=== PATIENT | female | born 1970 ===

== ENCOUNTER 2017-01-31 20:46 | Emergency (ER) | payer MEDICAID, OTHER ==
[2017-01-31 20:56] VITALS: RESP 16; O2SAT 98
[2017-01-31 21:45] LABS: BASO % 0.1 % (0.0-2.0); EOS % 0.3 % (0.0-4.0); HEMOGLOBIN 10.4 g/dL (12.0-16.0); LYMPH # 0.6 K/uL (1.0-4.3); MEAN CELL VOLUME 92.4 fl (81.0-99.0); MEAN CORPUSCULAR HEMOGLOBIN 30.5 pg (27.0-31.0); MEAN PLATELET VOLUME 9.3 fl (7.2-11.7); MONO # 0.2 K/uL (0.0-0.8); MONO % 4.4 % (0.0-10.0); NEUT # 4.2 K/uL (1.8-7.0); NEUT % 84.2 % (50.0-75.0); RBC 3.4 Mil/uL (3.80-5.20); RED CELL DISTRIBUTION WIDTH 13.5 % (11.5-14.5)
[2017-01-31 21:53] LABS: SQUAMOUS EPITHIAL < 1 /hpf (0-5); URINE BILIRUBIN NEGATIVE (NEGATIVE); URINE BLOOD SMALL (NEGATIVE); URINE CLARITY CLEAR (Clear); URINE COLOR YELLOW (YELLOW); URINE GLUCOSE (UA) NEG (Normal); URINE LEUKOCYTE ESTERASE NEG Leu/uL (Negative); URINE NITRATE NEGATIVE (NEGATIVE); URINE PROTEIN NEGATIVE (NEGATIVE); URINE UROBILINOGEN 0.2-1.0 mg/dL (0.2-1.0)
[2017-01-31 22:02] LABS: ALB/GLOB RATIO 1.2 (1.0-2.1); ALBUMIN 3.2 g/dL (3.5-5.0); ALT/SGPT 36 U/L (9-52); AST/SGOT 31 U/L (14-36); BLOOD UREA NITROGEN 4 mg/dl (7-17); CALCIUM 8.6 mg/dL (8.4-10.2); GFR AFRICAN-AMERICAN > 60; GFR NON-AFRICAN AMERICAN > 60
[2017-01-31] MEDS ORDERED: Sodium Chloride 0.9% 50 ML IV ONE (22:11)
[2017-01-31] MEDS ORDERED: Iohexol 300 100 ML IJ ONE (22:11)
--- NOTE | 2017-01-31 23:30 | CT ---
EXAM: CT Abdomen and Pelvis With Intravenous Contrast CLINICAL HISTORY: 46 years old, female; Signs and symptoms; Fever and nausea and vomiting; Prior surgery; Surgery date: 6+ months; Surgery type: 2 c-sections. Tubal ligation; Additional info: Abdominal pain, vomiting TECHNIQUE: Axial computed tomography images of the abdomen and pelvis with intravenous contrast. This CT exam was performed using one or more of the following dose reduction techniques: automated exposure control, adjustment of the mA and/or kV according to patient size, and/or use of iterative reconstruction technique. Coronal and sagittal reformatted images were created and reviewed. CONTRAST: 90 mL of [id number] administered intravenously. EXAM DATE/TIME: 01/31/2017 9:01 PM COMPARISON: CT ABD AND PELV W/CONTRAST 09/13/2013 12:43:50 PM FINDINGS: Lower thorax: Heart size is normal. There is minimal atelectasis at the lung bases. ABDOMEN: Liver: unremarkable Gallbladder and bile ducts: unremarkable Pancreas: unremarkable Spleen: unremarkable Adrenals: unremarkable Kidneys and ureters: unremarkable Stomach and bowel: Stomach is almost empty. Rotation is normal. Small bowel is mildly distended with fluid and air. Terminal ileum is unremarkable.Appendix is not visualized.There is no pericecal inflammation. There is moderate stool in the colon. Appendix: See above. PELVIS: Bladder: unremarkable Reproductive: Uterus is enlarged. There are calcified and noncalcified masses. There are multiple nabothian cysts in the cervix. ABDOMEN and PELVIS: Intraperitoneal space: There is trace free fluid.There is no free air. Bones/joints: There are degenerative changes in the osseus structures. Soft tissues: unremarkable Vasculature: Vascular structures are unremarkable. Lymph nodes: There is no pathologic adenopathy. IMPRESSION: No acute solid visceral abnormality; enlarged fibroid uterus; mild ileus, no obstruction; nonvisualization the appendix no CT findings of appendicitis Additional findings as described above.
--- NOTE | 2017-02-01 00:07 | ED PDOC ---
HPI: Abdomen Time Seen by Provider: 01/31/17 20:59 Chief Complaint (Nursing): Abdominal Pain Chief Complaint (Provider): Abdominal pain History Per: Patient History/Exam Limitations: no limitations Onset/Duration Of Symptoms: Days Outside of [place] travel?: No Past Medical History Vital Signs: Last Vital Signs Temp 98.4 F 01/31/17 20:53 Pulse 85 01/31/17 20:53 Resp 16 01/31/17 20:53 BP 105/61 01/31/17 20:53 Pulse Ox 98 01/31/17 20:53 - Medical History PMH: Anxiety, Asthma, Bipolar Disorder, Depression Denies: Chronic Kidney Disease - Family History Family History: States: Unknown Family Hx - Immunization History Hx Tetanus Toxoid Vaccination: No Hx Influenza Vaccination: No Hx Pneumococcal Vaccination: No - Home Medications Home Medications: Ambulatory Orders Medication Instructions Recorded Dicyclomine [Dicyclomine HCl] 10 mg PO QID #20 cap 01/29/17 Gabapentin [Neurontin] 100 mg PO BID 01/29/17 oxyCODONE/Acetaminophen [Percocet 1 ea PO Q6H PRN #15 tab 02/01/17 5/325 mg Tab] - Allergies Allergies/Adverse Reactions: Allergies Allergy/AdvReac Type Severity Reaction Status Date / Time No Known Allergies Allergy Verified 01/29/17 02:56 - Laboratory Results Result Diagrams: 01/31/17 21:30 01/31/17 21:30 - ECG O2 Sat by Pulse Oximetry: 98 Disposition - Clinical Impression Clinical Impression: Abdominal pain - Patient ED Disposition Is Patient to be Admitted: No Counseled Patient/Family Regarding: Diagnosis, Need For Followup, Rx Given - Disposition Referrals: [facility] [Outside] [facility] [Outside] Disposition: Routine/Home Disposition Time: 00:06 Condition: GOOD Prescriptions: oxyCODONE/Acetaminophen [Percocet 5/325 mg Tab] 1 ea PO Q6H PRN #15 tab PRN Reason: Pain, Severe (8-10) Instructions: Abdominal Pain (ED) Print Language: BULGARIAN
[2017-02-01 00:21] VITALS: BP 110/72; PULSE 84; TEMP 99.1
== END 2017-02-01 00:22 | disposition home or self-care (01) ==
LOC: H.ER 20:46
DX: R10.9 Unspecified abdominal pain (principal); F31.9 Bipolar disorder, unspecified; F41.9 Anxiety disorder, unspecified; J45.909 Unspecified asthma, uncomplicated

== ENCOUNTER 2017-02-23 07:11 | Emergency (ER) | payer MEDICAID ==
[2017-02-23 07:14] VITALS: BMI 23.8
[2017-02-23 07:15] VITALS: BP 148/84; PULSE 79; RESP 18; TEMP 97.3; O2SAT 98
--- NOTE | 2017-02-23 08:24 | ED PDOC ---
HPI: Psych/Substance Abuse Time Seen by Provider: 02/23/17 07:44 Chief Complaint (Nursing): Anxiety Chief Complaint (Provider): Anxiety History Per: Patient, Family History/Exam Limitations: no limitations Onset/Duration Of Symptoms: Days Current Symptoms Are (Timing): Still Present Suicide/Self Injury Attempted (Context): None Additional Complaint(s): The patient is a 46yo female, past medical history of bipolar disorder, anxiety and depression, currently newly started on Lexipro, presents to the ED for evaluation of anxiety preset for the past two days. Patient reports she has been feeling anxious and was not able to sleep for the past two nights. She reports presenting today due to a "panic attack." The patient denies any suicidal ideation, homicidal ideation, auditory or visual hallucinations. Patient additionally denies any headache, chest pain, nausea, vomiting, abdominal pain. Patient offers no additional medical complaints. Past Medical History Reviewed: Historical Data, Nursing Documentation, Vital Signs Vital Signs: Last Vital Signs Temp 97.3 F L 02/23/17 07:14 Pulse 79 02/23/17 07:14 Resp 18 02/23/17 07:14 BP 148/84 02/23/17 07:14 Pulse Ox 98 02/23/17 07:14 - Medical History PMH: Anxiety, Asthma, Bipolar Disorder, Depression Denies: Chronic Kidney Disease - Family History Family History: States: Unknown Family Hx - Immunization History Hx Tetanus Toxoid Vaccination: No Hx Influenza Vaccination: No Hx Pneumococcal Vaccination: No - Home Medications Home Medications: Ambulatory Orders Medication Instructions Recorded Dicyclomine [Dicyclomine HCl] 10 mg PO QID #20 cap 01/29/17 Gabapentin [Neurontin] 100 mg PO BID 01/29/17 oxyCODONE/Acetaminophen [Percocet 1 ea PO Q6H PRN #15 tab 02/01/17 5/325 mg Tab] - Allergies Allergies/Adverse Reactions: Allergies Allergy/AdvReac Type Severity Reaction Status Date / Time No Known Allergies Allergy Verified 01/29/17 02:56 Review of Systems ROS Statement: Except As Marked, All Systems Reviewed And Found Negative Constitutional: Negative for: Fever, Chills Cardiovascular: Negative for: Chest Pain Gastrointestinal: Negative for: Nausea, Vomiting, Abdominal Pain Psych: Positive for: Anxiety. Negative for: Suicidal ideation, Other ( homicidal ideation, hallucinations) Physical Exam - Reviewed Nursing Documentation Reviewed: Yes Vital Signs Reviewed: Yes - Physical Exam Appears: Positive for: Well, Non-toxic, No Acute Distress Head Exam: Positive for: ATRAUMATIC, NORMAL INSPECTION, NORMOCEPHALIC Skin: Positive for: Normal Color Eye Exam: Positive for: Normal appearance Neck: Positive for: Normal, Supple Cardiovascular/Chest: Positive for: Regular Rate, Rhythm Respiratory: Positive for: Normal Breath Sounds. Negative for: Respiratory Distress Gastrointestinal/Abdominal: Positive for: Soft. Negative for: Tenderness Neurologic/Psych: Positive for: Alert, Oriented. Negative for: Motor/Sensory Deficits - ECG O2 Sat by Pulse Oximetry: 98 (RA) Pulse Ox Interpretation: Normal Medical Decision Making Medical Decision Making: Time: 0800 Impression: Anxiety Plan: 08 Patient reports feeling better and states she wishes to go home. Patient informed that the lexipro will take 2 weeks to have its full effect, she was informed to continue taking her medications without fail and to follow up with her pcp in 1-2 days. Patient expresses understanding and is agreeable. Stable for discharge home. Scribe Attestation: Documented by Janet Ge acting as a scribe for Ainsley Lazaro MD. Provider Attestation: All medical record entries made by the Scribe were at my direction and personally dictated by me. I have reviewed the chart and agree that the record accurately reflects my personal performance of the history, physical exam, medical decision making, and the department course for this patient. I have also personally directed, reviewed, and agree with the discharge instructions and disposition. Disposition - Clinical Impression Clinical Impression: Anxiety disorder, Depression - Patient ED Disposition Is Patient to be Admitted: No - Disposition Referrals: Isi Mirza MD [Family Provider] - Disposition: Routine/Home Disposition Time: 08:15 Condition: STABLE Instructions: Generalized Anxiety Disorder (ED), Insomnia (ED) Forms: [facility] School/Work Excuse Print Language: GUINEAN - POA Present On Arrival: None
--- NOTE | 2017-02-23 11:22 | CARD ---
APPROVED REPORT EKG Measurement Heart [id number] <Conclusion> Normal sinus rhythm Incomplete right bundle branch block Borderline ECG
== END 2017-02-23 08:47 | disposition home or self-care (01) ==
LOC: H.ER 07:11
DX: F41.0 Panic disorder [episodic paroxysmal anxiety] (principal); F31.9 Bipolar disorder, unspecified; J45.909 Unspecified asthma, uncomplicated

== ENCOUNTER 2017-06-12 13:56 | Emergency (ER) | payer SELFPAY ==
[2017-06-12 13:57] VITALS: BMI 23.8
[2017-06-12 14:17] VITALS: BP 118/70; PULSE 78; RESP 18; TEMP 98; O2SAT 100
--- NOTE | 2017-06-12 14:47 | ED PDOC ---
Upper Extremity Pain/Injury Time Seen by Provider: 06/12/17 14:27 Chief Complaint (Nursing): Upper Extremity Problem/Injury Chief Complaint (Provider): Bilateral arm and hand pain History Per: Patient History/Exam Limitations: no limitations Onset/Duration Of Symptoms: Days (3) Current Symptoms Are (Timing): Still Present Additional Complaint(s): Patient is a 46 y/o female with a past medical history of asthma presenting to the emergency department for bilateral arm pain and hand pain ongoing for three days. She states pain is worse in right elbow. 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 Denies decreased range of motion of upper extremities, fall, trauma, or other complaints. PCP: none provided. Past Medical History Reviewed: Historical Data, Nursing Documentation, Vital Signs Vital Signs: Last Vital Signs Temp 98 F 06/12/17 14:15 Pulse 78 06/12/17 14:15 Resp 18 06/12/17 14:15 BP 118/70 06/12/17 14:15 Pulse Ox 100 06/12/17 14:15 - Medical History PMH: Anxiety, Asthma, Bipolar Disorder, Depression Denies: Chronic Kidney Disease - Family History Family History: States: Unknown Family Hx - Social History Current smoker - smoking cessation education provided: Yes (>10 cigarettes for 20 years) Ex-Smoker (has not smoked in the last 12 months): No Alcohol: None Drugs: Denies - Immunization History Hx Tetanus Toxoid Vaccination: No Hx Influenza Vaccination: No Hx Pneumococcal Vaccination: No - Home Medications Home Medications: Ambulatory Orders Medication Instructions Recorded Dicyclomine [Dicyclomine HCl] 10 mg PO QID #20 cap 01/29/17 Gabapentin [Neurontin] 100 mg PO BID 01/29/17 oxyCODONE/Acetaminophen [Percocet 1 ea PO Q6H PRN #15 tab 02/01/17 5/325 mg Tab] Ibuprofen [Motrin] 600 mg PO Q8 #30 tab 06/12/17 - Allergies Allergies/Adverse Reactions: Allergies Allergy/AdvReac Type Severity Reaction Status Date / Time No Known Allergies Allergy Verified 06/12/17 14:14 Review of Systems ROS Statement: Except As Marked, All Systems Reviewed And Found Negative Musculoskeletal: Positive for: Arm Pain (bilateral, with sudden resolved weakness on her right arm), Hand Pain (finger joint pain), Other (traumatic pain ) Physical Exam - Reviewed Nursing Documentation Reviewed: Yes Vital Signs Reviewed: Yes - Physical Exam Appears: Positive for: Well, Non-toxic, No Acute Distress Head Exam: Positive for: ATRAUMATIC, NORMAL INSPECTION, NORMOCEPHALIC Skin: Positive for: Normal Color, Warm, Dry Eye Exam: Positive for: Normal appearance Neck: Positive for: Normal Cardiovascular/Chest: Positive for: Regular Rate, Rhythm. Negative for: Murmur Respiratory: Positive for: Normal Breath Sounds. Negative for: Accessory Muscle Use, Respiratory Distress Pulses-Radial (L): 2+ Pulses-Radial (R): 2+ Extremity: Positive for: Normal ROM, Tenderness (nodule to PIP of left 5th digit , tenderness to right lateral elbow and arm, pain worse with pronation of arm). Negative for: Deformity, Swelling Neurologic/Psych: Positive for: Alert, Oriented (x3) - ECG O2 Sat by Pulse Oximetry: 100 (RA) Pulse Ox Interpretation: Normal Medical Decision Making Medical Decision Making: Time: 14:35 Initial impression: arm pain, no hx of trauma, no signs of fx Initial plan: Motrin 600 mg PO Reevaluation Patient reports feeling better and asking for Rx. Symptoms likely related to arthralgia vs tendonitis. Recommend NSAIDs ~ Scribe Attestation: Documented by Adela Key, acting as a scribe for GUILLAUME Mane. Provider Scribe Attestation: All medical record entries made by the Scribe were at my direction and personally dictated by me. I have reviewed the chart and agree that the record accurately reflects my personal performance of the history, physical exam, medical decision making, and the department course for this patient. I have also personally directed, reviewed, and agree with the discharge instructions and disposition. Disposition - Clinical Impression Clinical Impression: Arm pain, right, Tendonitis - Patient ED Disposition Is Patient to be Admitted: No Counseled Patient/Family Regarding: Diagnosis, Need For Followup, Rx Given - Disposition Referrals: [facility] [Outside] Disposition Time: 15:10 Condition: GOOD Additional Instructions: Vaya a clinton mdico o la clnica en 2-5 nichols sin falta, para mas evaluacin. Hytop los medicamentos camilla indicado. Volver a la paolo de emergencia en cualquier momento si los sntomas persisten o empeoran. Prescriptions: Ibuprofen [Motrin] 600 mg PO Q8 #30 tab Forms: [email or web address] (Polish) Print Language: THAI - POA Present On Arrival: None
== END 2017-06-12 15:19 | disposition home or self-care (01) ==
LOC: H.ER 13:56
DX: M79.601 Pain in right arm (principal); F31.9 Bipolar disorder, unspecified; F41.9 Anxiety disorder, unspecified; J45.909 Unspecified asthma, uncomplicated

== ENCOUNTER 2018-02-12 12:19 | Emergency (ER) | payer MEDICAID, OTHER ==
[2018-02-12 12:19] VITALS: BMI 24.7
[2018-02-12 12:25] VITALS: BP 112/77; PULSE 92; RESP 20; TEMP 98.3; O2SAT 97
--- NOTE | 2018-02-12 14:32 | ED PDOC ---
HPI: General Adult Time Seen by Provider: 02/12/18 12:34 Chief Complaint (Nursing): Upper Extremity Problem/Injury Chief Complaint (Provider): Shoulder Pain History Per: Patient History/Exam Limitations: no limitations Onset/Duration Of Symptoms: Days (x 4) Current Symptoms Are (Timing): Still Present Additional Complaint(s): 47-year-old female presents to ED with R shoulder pain, ongoing for the last 4 days. Pt reports she works at the [employer] and lifts heavy packages daily. Pt states she has a history of similar pain that it usually resolves spontaneously, but reports this episode is lasting longer than usual. Pt states no relief after taking ibuprofen, last dose yesterday. (-) fever/chills (-) falls or trauma, (-) chest pain, (-) shortness of breath, (-) abdominal pain, (- ) nausea, (-) vomiting (-) history of surgery to shoulder. No other complaints at this time. LMP: 01/11/18 PMD: None Past Medical History Reviewed: Historical Data, Nursing Documentation, Vital Signs Vital Signs: Last Vital Signs Temp 98.3 F 02/12/18 12:22 Pulse 92 H 02/12/18 12:22 Resp 20 02/12/18 12:22 BP 112/77 02/12/18 12:22 Pulse Ox 97 02/13/18 18:38 - Medical History PMH: Anxiety, Asthma, Bipolar Disorder, Depression - Surgical History Surgical History: (x 2) Other surgeries: Laparoscopy - Family History Family History: States: Unknown Family Hx - Social History Current smoker - smoking cessation education provided: Yes (5 cigarettes a day) Alcohol: None Drugs: Denies - Home Medications Home Medications: Ambulatory Orders Medication Instructions Recorded Cyclobenzaprine [Cyclobenzaprine 10 mg PO HS #7 tab 01/06/18 HCl] Naproxen [Naprosyn] 1 tab PO BID PRN #20 tab 01/06/18 Ibuprofen [Motrin Tab] 800 mg PO TID PRN #15 tab 01/15/18 Meloxicam [Mobic] 15 mg PO DAILY #10 tab 02/12/18 Methocarbamol [Robaxin-750] 750 mg PO TID PRN #12 tab 02/12/18 - Allergies Allergies/Adverse Reactions: Allergies Allergy/AdvReac Type Severity Reaction Status Date / Time No Known Allergies Allergy Verified 02/12/18 12:30 Review of Systems ROS Statement: Except As Marked, All Systems Reviewed And Found Negative Cardiovascular: Negative for: Chest Pain Respiratory: Negative for: Shortness of Breath Gastrointestinal: Negative for: Nausea, Vomiting, Abdominal Pain Musculoskeletal: Positive for: Shoulder Pain (R Shoulder Pain) Physical Exam - Reviewed Nursing Documentation Reviewed: Yes Vital Signs Reviewed: Yes - Physical Exam Appears: Positive for: Well (Resting comfortably), Non-toxic, No Acute Distress Head Exam: Positive for: ATRAUMATIC, NORMOCEPHALIC Skin: Positive for: Normal Color, Warm, Dry Eye Exam: Positive for: EOMI, PERRL ENT: Positive for: Other (Mucus membranes moist. Airway patent, (-) stridor) Neck: Positive for: Painless ROM, Supple Cardiovascular/Chest: Positive for: Regular Rate, Rhythm Respiratory: Positive for: Normal Breath Sounds (respirations even and nonlabored, speaking in full sentences). Negative for: Respiratory Distress Back: Negative for: L CVA Tenderness, R CVA Tenderness, Vertebral Tenderness Extremity: Positive for: Other ((+) Tenderness to R posterior shoulder, R trapezius muscle, R paracervical muscle, (+) decreased ROM on abduction and extension of the R shoulder, (-) clavicular tenderness, (-) deformity, (-) swelling, (-) erythema, (-) overlying skin changes. Cap refill and sensation intact throughout. (-) distal NV deficit). Negative for: Deformity Neurologic/Psych: Positive for: Alert, Oriented (x3), Gait (steady in ED) - Laboratory Results Urine POC: Negative - ECG O2 Sat by Pulse Oximetry: 97 (RA) Pulse Ox Interpretation: Normal - Progress Re-evaluation Time: 14:20 (Pt reports resolution of symptoms. Pt is requesting to go home.) Condition: Re-examined Medical Decision Making Medical Decision Makin-year-old female with acute shoulder pain and muscle spasm Plan: - ED Test - Toradol 30 mg IM - Valium 5 mg PO (Not driving home) (-) ED Test 1420 Upon provider evaluation patient reports improvement of symptoms and is medically stable; requires no further treatment in the ED at this time. Patient will be discharged with Rx for Mobic and Robaxin. Counseling was provided and all questions were answered regarding diagnosis and need for follow up with clinic/ortho for further evaluation of symptoms. There is agreement to discharge plan. Return if symptoms persist or worsen. Patient states she fully agrees with and understands discharge instructions. States that she agrees with the plan and disposition. Verbalized and repeated discharge instructions and plan. I have given the patient opportunity to ask any additional questions. Scribe Attestation: Documented by Herbert Serna, acting as a scribe for Addis Hassan PA-C. Provider Scribe Attestation: All medical record entries made by the Scribe were at my direction and personally dictated by me. I have reviewed the chart and agree that the record accurately reflects my personal performance of the history, physical exam, medical decision making, and the department course for this patient. I have also personally directed, reviewed, and agree with the discharge instructions and disposition. Disposition - Clinical Impression Clinical Impression: Shoulder pain, acute, Muscle spasm of right shoulder - Patient ED Disposition Is Patient to be Admitted: No Counseled Patient/Family Regarding: Diagnosis, Need For Followup, Rx Given - Disposition Referrals: [facility] [Outside] George Kay III, MD [Staff Provider] - Disposition: Routine/Home Disposition Time: 14:29 Condition: STABLE Additional Instructions: FOLLOW UP WITH CLINIC/ORTHO FOR FURTHER EVALUATION OF SYMPTOMS. RETURN TO ED WITH ANY NEW OR WORSENING SYMPTOMS. APPLY HEAT TO AREA OF DISCOMFORT ON AND OFF EVERY 20 MINUTES. Prescriptions: Meloxicam [Mobic] 15 mg PO DAILY #10 tab Methocarbamol [Robaxin-750] 750 mg PO TID PRN #12 tab PRN Reason: Muscle Spasm Instructions: Muscle Spasms (DC), Shoulder Pain (DC) Forms: [employer] (Luxembourgish), [facility] ED School/Work Excuse Print Language: MALAY - POA Present On Arrival: None
== END 2018-02-12 14:46 | disposition home or self-care (01) ==
LOC: H.ER 12:19
DX: S46.911A Strain of unspecified muscle, fascia and tendon at shoulder and upper arm level, right arm, initial encounter (principal); X50.9XXA Other and unspecified overexertion or strenuous movements or postures, initial encounter; Y99.0 Civilian activity done for income or pay
CPT/HCPCS: 81025; 96372; 99282; J1885

== ENCOUNTER 2018-03-12 10:58 | Emergency (ER) | payer OTHER ==
[2018-03-12 10:59] VITALS: BMI 24.7
[2018-03-12 11:13] VITALS: BP 116/75; PULSE 74; RESP 20; TEMP 98.3; O2SAT 99
--- NOTE | 2018-03-12 12:17 | ED PDOC ---
Upper Extremity Pain/Injury Time Seen by Provider: 03/12/18 12:12 Chief Complaint (Nursing): Upper Extremity Problem/Injury Chief Complaint (Provider): elbow pain History Per: Patient Additional Complaint(s): 47-year-old [id number] female presents with pain and swelling to left elbow status post lifting heavy object at work 5 days ago. Patient has been taking ibuprofen which has provided minimal pain relief. Patient has noticed swelling to lateral aspect of the elbow as of yesterday. No associated numbness or tingling. PMD: none Past Medical History Reviewed: Historical Data, Nursing Documentation, Vital Signs Vital Signs: Last Vital Signs Temp 98.3 F 03/12/18 11:12 Pulse 74 03/12/18 11:12 Resp 20 03/12/18 11:12 BP 116/75 03/12/18 11:12 Pulse Ox 99 03/12/18 11:12 - Medical History PMH: Anxiety, Asthma, Bipolar Disorder, Depression - Surgical History Surgical History: (x 2) - Family History Family History: States: No Known Family Hx - Living Arrangements Living Arrangements: With Family - Social History Current smoker - smoking cessation education provided: No Alcohol: None Drugs: Denies - Home Medications Home Medications: Ambulatory Orders Medication Instructions Recorded Cyclobenzaprine [Cyclobenzaprine 10 mg PO HS #7 tab 01/06/18 HCl] Naproxen [Naprosyn] 1 tab PO BID PRN #20 tab 01/06/18 Ibuprofen [Motrin Tab] 800 mg PO TID PRN #15 tab 01/15/18 Meloxicam [Mobic] 15 mg PO DAILY #10 tab 02/12/18 Methocarbamol [Robaxin-750] 750 mg PO TID PRN #12 tab 02/12/18 Cyclobenzaprine [Cyclobenzaprine 10 mg PO TID PRN #20 tab 03/12/18 HCl] Naproxen [Naprosyn] 500 mg PO BID #20 tab 03/12/18 - Allergies Allergies/Adverse Reactions: Allergies Allergy/AdvReac Type Severity Reaction Status Date / Time No Known Allergies Allergy Verified 02/12/18 12:30 Review of Systems ROS Statement: Except As Marked, All Systems Reviewed And Found Negative Constitutional: Negative for: Fever Cardiovascular: Negative for: Chest Pain Respiratory: Negative for: Cough Gastrointestinal: Negative for: Nausea, Vomiting Musculoskeletal: Positive for: Other (left elbow pain ) Physical Exam - Reviewed Nursing Documentation Reviewed: Yes Vital Signs Reviewed: Yes - Physical Exam Appears: Positive for: Well Skin: Positive for: Normal Color. Negative for: Rash Eye Exam: Positive for: Normal appearance Cardiovascular/Chest: Positive for: Regular Rate, Rhythm Respiratory: Positive for: Normal Breath Sounds Extremity: Positive for: Other (Swelling and ecchymosis lateral aspect of left elbow, full range of motion with pain, strong left handgrip, neurovascular intact) Neurologic/Psych: Positive for: Alert, Oriented - ECG O2 Sat by Pulse Oximetry: 99 Pulse Ox Interpretation: Normal - Other Rad Left elbow x-ray X-Ray: Interpreted by Me, Viewed By Me X-Ray Interpretation: no fx, no dis Medical Decision Making Medical Decision Makin47 year old with left elbow pain x 5 days Plan: IM toradol X-ray left elbow Patient is aware of x-ray results, all questions answered. Patient referred to ortho on-call for follow-up. Prescriptions for Naprosyn and Flexeril provided. Procedures - Splinting Location: left elbow Pre-Made Type: leslee wrap, sling Pre-Proc Neuro Vasc Exam: normal Post-Proc Neuro Vasc Exam: normal Disposition - Clinical Impression Clinical Impression: Elbow sprain - Patient ED Disposition Is Patient to be Admitted: No Counseled Patient/Family Regarding: Studies Performed, Diagnosis, Need For Followup, Rx Given - Disposition Referrals: Sharad Rodriguez MD [Medical Doctor] - Disposition: Routine/Home Disposition Time: 13:27 Condition: STABLE Additional Instructions: Ice, rest and elevate affected area. Take prescription meds as directed as needed for pain. Follow-up with orthopedist for further evaluation. Prescriptions: Cyclobenzaprine [Cyclobenzaprine HCl] 10 mg PO TID PRN #20 tab PRN Reason: Muscle Spasm Naproxen [Naprosyn] 500 mg PO BID #20 tab Instructions: Elbow Sprain (DC) Forms: [employer] (Malian), [facility] ED School/Work Excuse
--- NOTE | 2018-03-12 13:23 | RAD ---
Date of service: 03/12/2018 PROCEDURE: Radiographs of the left elbow. HISTORY: trauma COMPARISON: No prior. FINDINGS: BONES: Normal. No fracture. JOINTS: Normal. No osteoarthritis. SOFT TISSUES: Normal. JOINT EFFUSION: None. OTHER FINDINGS: None IMPRESSION: Unremarkable radiographs of the left elbow. Concordant results with the preliminary interpretation rendered by the emergency department physician procedure.
== END 2018-03-12 13:52 | disposition home or self-care (01) ==
LOC: H.ER 10:58
DX: S53.402A Unspecified sprain of left elbow, initial encounter (principal); X50.9XXA Other and unspecified overexertion or strenuous movements or postures, initial encounter; Y99.0 Civilian activity done for income or pay; F31.9 Bipolar disorder, unspecified; F41.9 Anxiety disorder, unspecified
CPT/HCPCS: 73080; 96372; 99282; J1885

== ENCOUNTER 2018-03-24 06:17 | Emergency (ER) | payer OTHER ==
[2018-03-24 06:17] VITALS: BMI 24.7
[2018-03-24 06:45] VITALS: BP 131/80; PULSE 72; RESP 18; TEMP 98.7; O2SAT 100
--- NOTE | 2018-03-24 07:23 | ED PDOC ---
Upper Extremity Pain/Injury Time Seen by Provider: 03/24/18 07:07 Chief Complaint (Nursing): Upper Extremity Problem/Injury Chief Complaint (Provider): elbow pain History Per: Patient History/Exam Limitations: no limitations Onset/Duration Of Symptoms: Days Current Symptoms Are (Timing): Still Present Additional Complaint(s): Pt. with left elbow pain ongoing for 17 days. She hurt it lifting a heavy box and pain since then. She came to the ER several times and saw her doctor at work. Was dx with tendonitis. Pt. here again as she wants a work note as she still has pain. No numbness, tingles. Pain on moving elbow around. No pain elsewhere. No weakness. No chest pain. No new injury. Past Medical History Reviewed: Nursing Documentation, Vital Signs Vital Signs: Last Vital Signs Temp 98.7 F 03/24/18 06:43 Pulse 72 03/24/18 06:43 Resp 18 03/24/18 06:43 BP 131/80 03/24/18 06:43 Pulse Ox 100 03/24/18 06:43 - Medical History PMH: Anxiety, Asthma, Bipolar Disorder, Depression Denies: Chronic Kidney Disease - Surgical History Surgical History: (x 2) - Family History Family History: States: Unknown Family Hx - Immunization History Hx Tetanus Toxoid Vaccination: No Hx Influenza Vaccination: No Hx Pneumococcal Vaccination: No - Home Medications Home Medications: Ambulatory Orders Medication Instructions Recorded Cyclobenzaprine [Cyclobenzaprine 10 mg PO HS #7 tab 01/06/18 HCl] Naproxen [Naprosyn] 1 tab PO BID PRN #20 tab 01/06/18 Ibuprofen [Motrin Tab] 800 mg PO TID PRN #15 tab 01/15/18 Meloxicam [Mobic] 15 mg PO DAILY #10 tab 02/12/18 Methocarbamol [Robaxin-750] 750 mg PO TID PRN #12 tab 02/12/18 Cyclobenzaprine [Cyclobenzaprine 10 mg PO TID PRN #20 tab 03/12/18 HCl] Naproxen [Naprosyn] 500 mg PO BID #20 tab 03/12/18 Ibuprofen [Motrin] 600 mg PO TID 7 Days tab 03/24/18 - Allergies Allergies/Adverse Reactions: Allergies Allergy/AdvReac Type Severity Reaction Status Date / Time No Known Allergies Allergy Verified 03/24/18 06:45 Review of Systems Constitutional: Negative for: Weakness Cardiovascular: Negative for: Chest Pain Respiratory: Negative for: Shortness of Breath Musculoskeletal: Positive for: Arm Pain. Negative for: Neck Pain, Shoulder Pain , Back Pain, Hand Pain Skin: Negative for: Rash Neurological: Negative for: Weakness, Numbness, Confusion Physical Exam - Reviewed Nursing Documentation Reviewed: Yes Vital Signs Reviewed: Yes - Physical Exam Appears: Positive for: Non-toxic, No Acute Distress Skin: Positive for: Normal Color, Warm, DRY Neck: Positive for: Normal, Painless ROM Cardiovascular/Chest: Positive for: Regular Rate, Rhythm Respiratory: Positive for: Normal Breath Sounds Pulses-Radial (L): 2+ Pulses-Radial (R): 2+ Back: Positive for: Normal Inspection. Negative for: L CVA Tenderness, R CVA Tenderness Extremity: Positive for: Tenderness (medial left elbow; no echymosis or swelling ). Negative for: Normal ROM (left elbow limited due to pain at medial elbow; can bend active and passively to 100* before pain starts.), Calf Tenderness Neurologic/Psych: Positive for: Alert, Oriented - ECG O2 Sat by Pulse Oximetry: 100 Pulse Ox Interpretation: Normal - Progress ED Course And Treament: 730: Stable. AAOx3. Pain is chronic. Wants a work note. Her work said she can return. Advised to fu with pcp or work doctor for further evaluation. Disposition - Clinical Impression Clinical Impression: Tendonitis, Chronic pain - Patient ED Disposition Is Patient to be Admitted: No Counseled Patient/Family Regarding: Diagnosis, Need For Followup, Rx Given - Disposition Referrals: [facility] [Outside] - 03/25/18 Disposition: Routine/Home Disposition Time: 07:24 Condition: STABLE Additional Instructions: Return if not better in 3 days. Prescriptions: Ibuprofen [Motrin] 600 mg PO TID 7 Days tab Instructions: Chronic Pain (DC), Tendonitis (DC) Forms: [facility] ED School/Work Excuse
== END 2018-03-24 07:40 | disposition home or self-care (01) ==
LOC: H.ER 06:17
DX: M77.12 Lateral epicondylitis, left elbow (principal); F31.9 Bipolar disorder, unspecified; F41.9 Anxiety disorder, unspecified; G89.29 Other chronic pain
CPT/HCPCS: 96372; 99283; J1885

== ENCOUNTER 2018-06-28 11:40 | Emergency (ER) | payer MEDICAID, OTHER ==
[2018-06-28 11:55] VITALS: BMI 27.3
[2018-06-28 11:57] VITALS: BP 105/71; PULSE 81; RESP 20; TEMP 98.3; O2SAT 98
--- NOTE | 2018-06-28 13:13 | ED PDOC ---
Upper Extremity Pain/Injury Time Seen by Provider: 06/28/18 12:16 Chief Complaint (Nursing): Upper Extremity Problem/Injury Chief Complaint (Provider): Upper Extremity Problem/Injury History Per: Patient History/Exam Limitations: no limitations Onset/Duration Of Symptoms: Persistent (x3 months) Current Symptoms Are (Timing): Still Present Exacerbating Factor(s): Movement Additional Complaint(s): 47 year old female, left-hand dominant, presents to ED with a complaint of persistent left elbow pain with a clicking sensation, ongoing for 3 months. She reports taking Ibuprofen/Naprosyn at home with minimal relief - last dose at 2100 last night. Patient states she was diagnosed with tendonitis upon initial onset after a work injury but could not follow up with orthopedist as recommended due to pending insurance status. 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 LMP: patient cannot recall. PCP: none provided Past Medical History Reviewed: Historical Data, Nursing Documentation, Vital Signs Vital Signs: Last Vital Signs Temp 98.3 F 06/28/18 11:55 Pulse 81 06/28/18 11:55 Resp 20 06/28/18 11:55 BP 105/71 06/28/18 11:55 Pulse Ox 98 06/28/18 11:55 - Medical History PMH: Anxiety, Asthma, Bipolar Disorder, Depression - Surgical History Surgical History: (x 2) Other surgeries: left knee - Family History Family History: States: Unknown Family Hx - Social History Current smoker - smoking cessation education provided: Yes (5-6/daily) - Home Medications Home Medications: Ambulatory Orders Medication Instructions Recorded Cyclobenzaprine [Cyclobenzaprine 10 mg PO HS #7 tab 01/06/18 HCl] RX: Naproxen [Naprosyn] 1 tab PO BID PRN #20 tab 01/06/18 Ibuprofen [Motrin Tab] 800 mg PO TID PRN #15 tab 01/15/18 Meloxicam [Mobic] 15 mg PO DAILY #10 tab 02/12/18 Methocarbamol [Robaxin-750] 750 mg PO TID PRN #12 tab 02/12/18 Cyclobenzaprine [Cyclobenzaprine 10 mg PO TID PRN #20 tab 03/12/18 HCl] Naproxen [Naprosyn] 500 mg PO BID #20 tab 03/12/18 Ibuprofen [Motrin] 600 mg PO TID 7 Days tab 03/24/18 Acetaminophen [Acetaminophen 8 650 mg PO Q8 PRN #21 tablet.er 06/28/18 Hour] Meloxicam [Mobic] 15 mg PO DAILY PRN #10 tab 06/28/18 - Allergies Allergies/Adverse Reactions: Allergies Allergy/AdvReac Type Severity Reaction Status Date / Time No Known Allergies Allergy Verified 06/28/18 12:01 Review of Systems ROS Statement: Except As Marked, All Systems Reviewed And Found Negative Musculoskeletal: Positive for: Arm Pain (left elbow) Physical Exam - Reviewed Nursing Documentation Reviewed: Yes Vital Signs Reviewed: Yes - Physical Exam Comments: GENERAL APPEARANCE: Patient is awake, alert, oriented x 3, in no acute distress. Resting comfortably. SKIN: Warm, dry; (-) cyanosis. NECK: Supple, FROM ENT: Mucus membranes moist. Airway patent, (-) stridor. CHEST AND RESPIRATORY: (-) rales, (-) rhonchi, (-) wheezes; breath sounds equal bilaterally. Respirations even and nonlabored. HEART AND CARDIOVASCULAR: (-) irregularity Left Elbow: (+) diffuse tenderness with full ROM. Pain on flexion and supination. (-) effusion (-) erythema (-) crepitus (-) warmth (-) ecchymosis. Remainder of upper extremity: FROM with (-) tenderness. Sensation intact throughout. Legal Service Specialist strength equal. Cap refill <2 seconds. NEURO AND PSYCH: Mental status as above. Gait: steady. Speech: clear. (-) facial asymmetry (-) aphasia. - Laboratory Results Urine POC: Negative - ECG O2 Sat by Pulse Oximetry: 98 (RA) Pulse Ox Interpretation: Normal Medical Decision Making Medical Decision Making: Initial Impression: Acute/chronic elbow pain; tendonitis Initial Plan: * Urine * Toradol 30mg IM * XR of left elbow reviewed from 03/12/18: unremarkable findings. Upreg: Negative 1355 On re-evaluation, patient reports improvement of symptoms. On exam, patient remains AAOx3, in no acute distress. Vitals stable. Lab/Diagnostic results d/w the patient in great detail. Diagnosis of acute on chronic elbow pain; tendonitis d/w the patient. Based on history, exam and diagnostic results, plan will be for outpatient follow up with PMD/ortho/clinic. Patient instructed to follow-up with pmd / referral provided / the clinic in 1- 2 days without fail. Advised to take medication as prescribed. Return to the emergency room at any time for any new or worsening symptoms. Patient states she fully agrees with and understands discharge instructions. States that she agrees with the plan and disposition. Verbalized and repeated discharge instructions and plan. I have given the patient opportunity to ask any additional questions. - Scribe Attestation: Documented by Grace Sarabia, acting as a scribe for Addis Hassan PA-C. Provider Scribe Attestation: All medical record entries made by the Scribe were at my direction and personally dictated by me. I have reviewed the chart and agree that the record accurately reflects my personal performance of the history, physical exam, medical decision making, and the department course for this patient. I have also personally directed, reviewed, and agree with the discharge instructions and disposition. Disposition - Clinical Impression Clinical Impression: Left elbow pain, Tendonitis of elbow, left - Patient ED Disposition Is Patient to be Admitted: No Counseled Patient/Family Regarding: Studies Performed, Diagnosis, Need For Followup, Rx Given - Disposition Referrals: Chelly Merida MD [Staff Provider] - [facility] [Outside] Disposition: Routine/Home Disposition Time: 13:55 Condition: STABLE Additional Instructions: The emergency medical care you received today was directed at your acute symptoms. If you were prescribed any medication, please fill it and take as directed. It may take several days for your symptoms to resolve. Return to the Emergency Department if your symptoms worsen, do not improve, or if you have any other problems. Please contact your doctor in 2 days for re-evaluation and follow up / or call one of the physicians/clinics you have been referred to that are listed on the Patient Visit Information form that is included in your discharge packet. Bring any paperwork you were given at discharge with you along with any medications you are taking to your follow up visit. Our treatment cannot replace ongoing medical care by a primary care provider (PCP) outside of the emergency department. Prescriptions: Acetaminophen [Acetaminophen 8 Hour] 650 mg PO Q8 PRN #21 tablet.er PRN Reason: Pain, Moderate (4-7) Meloxicam [Mobic] 15 mg PO DAILY PRN #10 tab PRN Reason: Pain, Moderate (4-7) Instructions: Lateral Epicondylitis, Medial Epicondylitis, Tendonitis, Elbow Sprain (DC) Forms: [employer] (Chilean) Print Language: GREEK - POA Present On Arrival: None
== END 2018-06-28 14:13 | disposition home or self-care (01) ==
LOC: H.ER 11:40
DX: M77.12 Lateral epicondylitis, left elbow (principal)
CPT/HCPCS: 81025; 96372; 99282; J1885

== ENCOUNTER 2018-11-19 17:43 | Emergency (ER) | payer MEDICAID ==
[2018-11-19 17:43] VITALS: BMI 27.3
[2018-11-19 17:55] VITALS: RESP 18
[2018-11-19 20:12] LABS: BASO % 0.4 % (0.0-2.0); EOS # 0.1 K/uL (0.0-0.7); EOS % 1.1 % (0.0-4.0); HEMOGLOBIN 12.1 g/dL (12.0-16.0); LYMPH % 33.2 % (20.0-40.0); MEAN CELL VOLUME 89.1 fl (81.0-99.0); MEAN CORPUSCULAR HEMOGLOBIN 29.3 pg (27.0-31.0); MEAN CORPUSCULAR HGB CONC 32.9 g/dL (33.0-37.0); MEAN PLATELET VOLUME 10.7 fl (7.2-11.7); MONO # 0.5 K/uL (0.0-0.8); MONO % 8.3 % (0.0-10.0); NEUT # 3.4 K/uL (1.8-7.0); NRBC % 0.1 % (0.0-0.0); RBC 4.12 Mil/uL (3.80-5.20); RED CELL DISTRIBUTION WIDTH 14.1 % (11.5-14.5); WHITE BLOOD COUNT 5.9 K/uL (4.8-10.8)
--- NOTE | 2018-11-19 20:13 | ED PDOC ---
HPI: Chest Pain Time Seen by Provider: 11/19/18 19:04 Chief Complaint (Nursing): Chest Pain Chief Complaint (Provider): Chest Pain History Per: Patient History/Exam Limitations: no limitations Onset/Duration Of Symptoms: Days (X2 Weeks) Current Symptoms Are (Timing): Still Present Additional Complaint(s): 48 year old female with a past medical history of anemia presents to the ED with abdominal pain onset X2 weeks ago. Patient states that for the last two weeks she is feeling diffusely weak. Patient states that X2 days ago she started to feel epigastric pain radiating to her entire abdomen and upper chest. Patient states that this feeling is associated with constant fullness, and nausea. Patient reports that she has chills. Patient states that she feels so tired that she falls asleep in the middle of the day, has really poor concentration and feels like shes losing balance when she walks. Patient thinks that her symptoms are due to her anemia. Patient has had to take iron in the past due to anemia but has never needed a transfusion. Patient reports that she has gained 30 pounds in the last 6 months even though she has not changed her vegan diet in years and continues to walk on a regular basis. Patient denies fever, vomiting, diarrhea, constipation, and appetite. PMD: Sharyn Mari MD Past Medical History Reviewed: Historical Data, Nursing Documentation, Vital Signs Vital Signs: Last Vital Signs Temp 98.4 F 11/19/18 17:49 Pulse 77 11/19/18 17:49 Resp 18 11/19/18 17:49 BP 118/76 11/19/18 17:49 Pulse Ox 98 11/19/18 17:49 GISELE Report Viewed: Yes - Medical History PMH: Anxiety, Asthma, Bipolar Disorder, Depression Denies: Chronic Kidney Disease - Surgical History Surgical History: No Surg Hx, (x 2) - Family History Family History: States: No Known Family Hx - Social History Current smoker - smoking cessation education provided: Yes (heavy) Alcohol: Social Drugs: Denies - Immunization History Hx Tetanus Toxoid Vaccination: No Hx Influenza Vaccination: No Hx Pneumococcal Vaccination: No - Home Medications Home Medications: Ambulatory Orders Medication Instructions Recorded Cyclobenzaprine [Cyclobenzaprine 10 mg PO HS #7 tab 01/06/18 HCl] Naproxen [Naprosyn] 1 tab PO BID PRN #20 tab 01/06/18 Ibuprofen [Motrin Tab] 800 mg PO TID PRN #15 tab 01/15/18 Methocarbamol [Robaxin-750] 750 mg PO TID PRN #12 tab 02/12/18 Cyclobenzaprine [Cyclobenzaprine 10 mg PO TID PRN #20 tab 03/12/18 HCl] Naproxen [Naprosyn] 500 mg PO BID #20 tab 03/12/18 Ibuprofen [Motrin] 600 mg PO TID 7 Days tab 03/24/18 Acetaminophen [Acetaminophen 8 650 mg PO Q8 PRN #21 tablet.er 06/28/18 Hour] Meloxicam [Mobic] 15 mg PO DAILY PRN #10 tab 06/28/18 Albuterol HFA [Ventolin HFA 90 2 puff IH Q4H PRN #1 inh 11/19/18 mcg/actuation (8 g)] Gabapentin [Neurontin] 100 mg PO TID #30 capsule 11/19/18 Meloxicam [Mobic] 15 mg PO DAILY #10 tab 11/19/18 - Allergies Allergies/Adverse Reactions: Allergies Allergy/AdvReac Type Severity Reaction Status Date / Time No Known Allergies Allergy Verified 11/19/18 17:49 Review of Systems ROS Statement: Except As Marked, All Systems Reviewed And Found Negative Constitutional: Positive for: Chills, Other (constant fullness). Negative for: Fever Cardiovascular: Positive for: Chest Pain Gastrointestinal: Positive for: Nausea, Abdominal Pain. Negative for: Vomiting, Diarrhea, Constipation, Other (appetite) Physical Exam - Reviewed Nursing Documentation Reviewed: Yes Vital Signs Reviewed: Yes - Physical Exam Appears: Positive for: No Acute Distress Head Exam: Positive for: ATRAUMATIC, NORMOCEPHALIC Skin: Positive for: Warm, Dry, Pallor Eye Exam: Positive for: EOMI, PERRL ENT: Negative for: Pharyngeal Erythema, Tonsillar Exudate Neck: Positive for: Painless ROM, Supple Cardiovascular/Chest: Positive for: Regular Rate, Rhythm. Negative for: Murmur Respiratory: Positive for: Normal Breath Sounds. Negative for: Respiratory Distress Gastrointestinal/Abdominal: Positive for: Soft, Tenderness (epigastric, suprapubic, and bilateral upper quadrant). Negative for: Organomegaly, Mass, Distended, Guarding Back: Positive for: Normal Inspection. Negative for: Decreased ROM Extremity: Positive for: Normal ROM. Negative for: Deformity Lymphatic: Negative for: Adenopathy Neurological/Psych: Positive for: Awake, Alert, Mood/Affect (anxious mood and affect). Negative for: Motor/Sensory Deficits - Laboratory Results Result Diagrams: 11/19/18 19:43 11/19/18 19:43 - ECG O2 Sat by Pulse Oximetry: 98 (RA) Pulse Ox Interpretation: Normal Medical Decision Making Medical Decision Making: Time: 19:04 Initial Impression: Abdominal pain, weakness Differentials include anemia, gastritis, pancreatitis, hepatitis, gallbladder disease and thyroid disease Plan: -Type and screen -Electrocardiogram -CMP -Drug screen -Lipase -Magnesium -Phosphorous -Thyroid stimulating hormone -ED Urine Preg -ED Urine dipstick -EKG -CBC with Differential -IV Insertion -re-evaluation 2200 Labs reviewed and within normal limits. DW pt findings and plan of care. Rest and followup PMD. She request refills of her albuterol pump and gabapentin, unsure of her current dose. Scribe Attestation: Documented by Amarjit Carty, acting as a scribe for Manda Echols MD Provider Scribe Attestation: All medical record entries made by the Scribe were at my direction and personally dictated by me. I have reviewed the chart and agree that the record accurately reflects my personal performance of the history, physical exam, medical decision making, and the department course for this patient. I have also personally directed, reviewed, and agree with the discharge instructions and disposition Disposition - Clinical Impression Clinical Impression: Weakness Counseled Patient/Family Regarding: Studies Performed, Diagnosis, Need For Followup, Rx Given - Disposition Referrals: Sharyn Mari MD [Family Provider] - Disposition: Routine/Home Disposition Time: 22:08 Condition: STABLE Prescriptions: Albuterol HFA [Ventolin HFA 90 mcg/actuation (8 g)] 2 puff IH Q4H PRN #1 inh PRN Reason: ASTHMA Gabapentin [Neurontin] 100 mg PO TID #30 capsule Meloxicam [Mobic] 15 mg PO DAILY #10 tab Instructions: Menopause, Chest Pain That Is Not Caused by the Heart (DC), Weakness (ED)
[2018-11-19 20:22] LABS: ALB/GLOB RATIO 1.5 (1.0-2.1); ALT/SGPT 23 U/L (9-52); AST/SGOT 25 U/L (14-36); BLOOD UREA NITROGEN 3 mg/dl (7-17); CALCIUM 9.1 mg/dL (8.4-10.2); GFR NON-AFRICAN AMERICAN > 60; LIPASE 63 U/L (23-300)
[2018-11-19 20:37] LABS: BARBITURATES, UR NEGATIVE (NEGATIVE); BENZODIAZEPINES, UR NEGATIVE (NEGATIVE); OPIATES, UR NEGATIVE (NEGATIVE); PHENCYCLIDINE, UR NEGATIVE (NEGATIVE)
[2018-11-19 23:34] VITALS: BP 112/74; PULSE 72; TEMP 98.2
--- NOTE | 2018-11-20 09:48 | CARD ---
APPROVED REPORT Date of service: 11/19/2018 EKG Measurement Heart [id number] <Conclusion> Normal sinus rhythm Normal ECG
[2018-11-22 15:17] VITALS: O2SAT 98
== END 2018-11-19 23:05 | disposition home or self-care (01) ==
LOC: H.ER 17:43
DX: M62.81 Muscle weakness (generalized) (principal); D64.9 Anemia, unspecified; F31.9 Bipolar disorder, unspecified; F41.9 Anxiety disorder, unspecified; Z79.899 Other long term (current) drug therapy; F17.200 Nicotine dependence, unspecified, uncomplicated; J45.909 Unspecified asthma, uncomplicated; N95.1 Menopausal and female climacteric states